=== PATIENT | female | born 1990 | race Caucasian/White ===

== ENCOUNTER 2017-11-19 22:10 | Emergency (ER) | payer MEDICAID ==
[~2017-11-19] VITALS: Ht 160 cm; Wt 107.5 kg
[~2017-11-19 22:10] MED LIST: GABAPENTIN100 MG PO; LITHIUM CARBON150 MG PO; TRAZODONE HCL50 MG PO
[2017-11-19 22:28] VITALS: BP 139/83
[2017-11-19] MEDS ORDERED: FLEXERIL PO (22:29)
[2017-11-19] MEDS ORDERED: ULTRAM 50MG TAB50 MG PO (22:29)
== END 2017-11-19 22:35 | disposition home or self-care (01) ==
LOC: M.ERS 22:10
DX: S46.912A Strain of unspecified muscle, fascia and tendon at shoulder and upper arm level, left arm, initial encounter (principal); J45.909 Unspecified asthma, uncomplicated; F31.9 Bipolar disorder, unspecified; Z88.6 Allergy status to analgesic agent; Z88.1 Allergy status to other antibiotic agents; X58.XXXA Exposure to other specified factors, initial encounter; Y93.89 Activity, other specified; Y92.89 Other specified places as the place of occurrence of the external cause; Y99.8 Other external cause status

== ENCOUNTER 2018-01-09 02:52 | Emergency (ER) | payer MEDICAID ==
[~2018-01-09] VITALS: Ht 160 cm; Wt 104.3 kg
[~2018-01-09 02:52] MED LIST changes: +FLEXERIL PO; +ULTRAM 50MG TAB50 MG PO
[2018-01-09 03:07] LABS: ABSOLUTE EOSINOPHILS 0.2 thou/uL (0.0-0.7); ABSOLUTE LYMPHOCYTES 2.4 thou/uL (0.8-5.3); ABSOLUTE MONOCYTES 0.8 thou/uL (0.0-1.2); ABSOLUTE NEUTROPHILS 5.8 thou/uL (1.6-8.1); BASOPHILS 0.5 %; EOSINOPHILS 2.6 %; HEMATOCRIT 39.3 % (37.0-47.0); HEMOGLOBIN 13.2 gm/dL (12.0-15.0); LYMPHOCYTES 26.2 %; MCH 28.9 pg (26.0-34.0); MCHC 33.5 g/dL (28.0-37.0); MONOCYTES 8.1 %; MPV 7.5 fl. (7.2-11.1); NUCLEATED RBCS 0 /100WBC; PLATELET COUNT* 288 thou/uL (150-400); POLYS 62.6 %; RBC 4.57 mil/uL (4.20-5.00); RDW-CV 12.8 % (10.5-14.5); WBC 9.2 thou/uL (4.0-11.0)
[2018-01-09 03:19] LABS: CALCIUM 8.5 mg/dL (8.5-10.1); CREATININE 0.9 mg/dL (0.6-1.3)
[2018-01-09 03:20] LABS: POTASSIUM 2.8 mmol/L (3.5-5.1)
[2018-01-09 03:23] LABS: ALBUMIN 3.9 g/dL (3.4-5.0); TOTAL BILIRUBIN 0.2 mg/dL (<0.1-1.0); TOTAL PROTEIN 7.7 g/dL (6.4-8.2)
[2018-01-09 08:11] VITALS: BP 102/65
== END 2018-01-09 08:24 | disposition home or self-care (01) ==
LOC: M.ERS 02:52
PROVIDERS: Emergency Medicine
DX: F10.129 Alcohol abuse with intoxication, unspecified (principal); E87.6 Hypokalemia; F31.9 Bipolar disorder, unspecified; J45.909 Unspecified asthma, uncomplicated; Z88.1 Allergy status to other antibiotic agents; Z88.8 Allergy status to other drugs, medicaments and biological substances

== ENCOUNTER 2021-01-15 20:43 | Emergency (ER) | payer MEDICAID ==
[~2021-01-15] VITALS: Ht 160 cm; Wt 102.1 kg
[2021-01-15] MEDS ORDERED: PROAIR HFA8.5 GM INH (20:57)
[2021-01-15] MEDS ORDERED: BIRTH CONTROL (20:57)
[2021-01-15] MEDS ORDERED: BLOOD PRESSURE MED (20:57)
[2021-01-15] MEDS ORDERED: TESSALON PERLE100 MG PO (21:46)
[2021-01-15] MEDS ORDERED: AMOXICILLIN 50500 MG PO (21:46)
[2021-01-15 21:56] VITALS: BP 154/79
== END 2021-01-15 21:56 | disposition home or self-care (01) ==
LOC: M.ERS 20:43
DX: J18.9 Pneumonia, unspecified organism (principal); Z20.822 Contact with and (suspected) exposure to COVID-19

== ENCOUNTER 2021-03-06 07:21 | Emergency (ER) | payer MEDICAID ==
[~2021-03-06] VITALS: Ht 160 cm; Wt 102.1 kg
[~2021-03-06 07:21] MED LIST changes: +AMOXICILLIN 50500 MG PO; +BIRTH CONTROL; +BLOOD PRESSURE MED; +PROAIR HFA8.5 GM INH; +TESSALON PERLE100 MG PO
[2021-03-06] MEDS ORDERED: AMOXICILLIN 50500 MG PO (07:29)
[2021-03-06] MEDS ORDERED: HYDROCODON-ACE1 EAC7 PO ×2 (07:30→08:56)
[2021-03-06] MEDS ORDERED: ZOFRAN ODT4 MG DISSOLVE (09:27)
[2021-03-06 09:30] VITALS: BP 148/88
== END 2021-03-06 09:31 | disposition home or self-care (01) ==
LOC: M.ERS 07:21
DX: M27.3 Alveolitis of jaws (principal); H92.01 Otalgia, right ear; J45.909 Unspecified asthma, uncomplicated; I10 Essential (primary) hypertension; Z98.818 Other dental procedure status; Z88.1 Allergy status to other antibiotic agents; Z88.6 Allergy status to analgesic agent

== ENCOUNTER 2021-03-25 04:52 | Emergency (ER) | payer MEDICAID ==
[~2021-03-25] VITALS: Ht 160 cm; Wt 102.1 kg
[~2021-03-25 04:52] MED LIST changes: +HYDROCODON-ACE1 EAC7 PO; +ZOFRAN ODT4 MG DISSOLVE
[2021-03-25] MEDS ORDERED: BIRTH CONTROL PILL (05:17)
[2021-03-25 06:31] VITALS: BP 145/94
[2021-03-25] MEDS ORDERED: PROAIR HFA8.5 GM INH (16:00)
[2021-03-25] MEDS ORDERED: PREDNISONE 20 M20 MG PO (16:00)
== END 2021-03-25 06:31 | disposition home or self-care (01) ==
LOC: M.ERS 04:52
DX: J06.9 Acute upper respiratory infection, unspecified (principal); Z20.822 Contact with and (suspected) exposure to COVID-19; F31.9 Bipolar disorder, unspecified; J45.909 Unspecified asthma, uncomplicated; I10 Essential (primary) hypertension; Z88.8 Allergy status to other drugs, medicaments and biological substances; Z88.1 Allergy status to other antibiotic agents

== ENCOUNTER 2021-03-25 14:38 | Emergency (ER) | payer MEDICAID ==
[~2021-03-25] VITALS: Ht 160 cm; Wt 102.1 kg
[~2021-03-25 14:38] MED LIST changes: +BIRTH CONTROL PILL
[2021-03-25] MEDS ORDERED: PROAIR HFA8.5 GM INH (16:00)
[2021-03-25] MEDS ORDERED: PREDNISONE 20 M20 MG PO (16:00)
[2021-03-25 16:20] VITALS: BP 151/108
== END 2021-03-25 16:20 | disposition home or self-care (01) ==
LOC: M.ERS 14:38
DX: B34.9 Viral infection, unspecified (principal); J45.901 Unspecified asthma with (acute) exacerbation; F31.9 Bipolar disorder, unspecified; I10 Essential (primary) hypertension; Z88.1 Allergy status to other antibiotic agents; Z88.8 Allergy status to other drugs, medicaments and biological substances

== ENCOUNTER 2021-07-05 17:33 | Emergency (ER) | payer MEDICAID ==
[~2021-07-05] VITALS: Ht 160 cm; Wt 99.8 kg
[~2021-07-05 17:33] MED LIST changes: +PREDNISONE 20 M20 MG PO
[2021-07-05 19:25] LABS: INFLUENZA A ANTIGEN Negative (Negative); INFLUENZA B ANTIGEN Negative (Negative)
[2021-07-05] MEDS ORDERED: MEDI-MECLIZINE25 MG PO (19:53)
[2021-07-05] MEDS ORDERED: LOPERAMIDE 2 MG2 M1 PO (19:53)
[2021-07-05] MEDS ORDERED: BUTALB-APAP-CA1 EACH PO (19:53)
[2021-07-05] MEDS ORDERED: ONDANSETRON HCL4 M2 PO (19:53)
[2021-07-05 20:00] VITALS: BP 140/82
== END 2021-07-05 20:00 | disposition home or self-care (01) ==
LOC: M.ERS 17:33
PROVIDERS: Physician Assistant
DX: R19.7 Diarrhea, unspecified (principal); Z20.822 Contact with and (suspected) exposure to COVID-19; J45.909 Unspecified asthma, uncomplicated; F32.9 Major depressive disorder, single episode, unspecified; I10 Essential (primary) hypertension; Z88.8 Allergy status to other drugs, medicaments and biological substances